=== PATIENT | male | born 1990 | race Caucasian/White ===

== ENCOUNTER → 2020-07-22 14:20 | Outpatient (CLI) | payer OTHER, SELFPAY ==
[2020-07-22] MEDS: COVID-19 VACC #1, MRNA(MOD) 100 MCG/0.5 ML VIAL IM (14:30)
== END ==
PROVIDERS: Family Provider Family Medicine; PCP Family Medicine; Visit Provider Internal Medicine
DX: Z23 Encounter for immunization (principal)
CPT/HCPCS: 0011A; 91301

== ENCOUNTER → 2020-08-19 14:27 | Outpatient (CLI) | payer OTHER, SELFPAY ==
[2020-08-19] MEDS: COVID-19 VACC #2, MRNA(MOD) 100 MCG/0.5 ML VIAL IM (14:35)
== END ==
PROVIDERS: Family Provider Family Medicine; PCP Family Medicine; Visit Provider Internal Medicine
DX: Z23 Encounter for immunization (principal)
CPT/HCPCS: 0012A; 91301

== ENCOUNTER → 2021-12-11 11:12 | Outpatient (CLI) | payer OTHER, SELFPAY | PROVIDERS: Family Provider Family Medicine; PCP Pediatrics; Referring Provider Pediatrics; Visit Provider Pediatrics | DX: R07.9 Chest pain, unspecified (principal) | CPT/HCPCS: 93005 ==